=== PATIENT | male | born 1980 | race Caucasian/White ===

== ENCOUNTER 2016-12-03 08:43 | Emergency (ER) | payer SELFPAY ==
[~2016-12-03] VITALS: Ht 182.9 cm; Wt 86.6 kg
[2016-12-03 08:45] VITALS: BP 137/94
[2016-12-03] MEDS ORDERED: FOLIC ACID 1 MG TABLET PO SCH (10:30)
[2016-12-03] MEDS ORDERED: THIAMINE 100MG TABLET PO ONE (10:30)
[2016-12-03 10:39] LABS: ASPARTATE AMINO TRANSFERASE 26 U/L (15-37); BLOOD UREA NITROGEN 14 mg/dL (7-18)
[2016-12-03] MEDS ORDERED: HYDROmorphone 1 MG/ML, 1ML ONE ×2 (10:47→11:21)
[2016-12-03] MEDS ORDERED: ONDANSETRON 2MG/ML, 2ML ONE (10:48)
[2016-12-03] MEDS ORDERED: LORazepam 2 MG/ML, 1ML ONE (10:48)
[2016-12-03] MEDS ORDERED: THIAMINE 100MG TABLET ONE (11:21)
[2016-12-03] MEDS: HYDROmorphone 1 MG/ML, 1ML IVPush PRN ×2 (11:25→11:50)
[2016-12-03] MEDS ORDERED: LORazepam 2 MG/ML, 1ML IVPush ONE (11:30)
[2016-12-03] MEDS ORDERED: SODIUM CHLORIDE FLUSH 10ML SYR IVF ONE (11:30)
[2016-12-03] MEDS ORDERED: ONDANSETRON 2MG/ML, 2ML IVPush ONE (11:30)
[2016-12-03] MEDS ORDERED: SODIUM CHLORIDE 0.9% 1,000ML IVBOLUS ONE (11:30)
[2016-12-03] MEDS ORDERED: OXYcodone/APAP 5/325MG TABLET ONE (12:05)
[2016-12-03] MEDS ORDERED: OXYcodone/APAP 5/325MG TABLET PO ONE (12:30)
== END 2016-12-03 13:03 | disposition home or self-care (01) ==
LOC: ED 12:57
DX: S22.41XA Multiple fractures of ribs, right side, initial encounter for closed fracture (principal); I10 Essential (primary) hypertension; F10.231 Alcohol dependence with withdrawal delirium; Y04.0XXA Assault by unarmed brawl or fight, initial encounter; Y93.89 Activity, other specified; Y99.8 Other external cause status; Y92.009 Unspecified place in unspecified non-institutional (private) residence as the place of occurrence of the external cause
CPT/HCPCS: 36415; 71250; 80053; 80307; 85025; 93005; 96361; 96374; 96375; 99285; J1170; J2060; J2405; J7030

== ENCOUNTER 2016-12-27 11:23 | Inpatient (IN) | payer OTHER ==
[~2016-12-27] VITALS: Ht 182.9 cm; Wt 87.7 kg
[2016-12-27] MEDS ORDERED: THIAMINE 100 MG/ML, 2ML IM ONE (12:00)
[2016-12-27] MEDS ORDERED: SODIUM CHLORIDE FLUSH 10ML SYR IVF ONE (12:00)
[2016-12-27] MEDS ORDERED: ONDANSETRON 2MG/ML, 2ML IVPush ONE (12:00)
[2016-12-27 12:09] LABS: HEMATOCRIT 53.1 % (39.2-51.8); HEMOGLOBIN 18.1 g/dL (13.7-18.0); WHITE BLOOD COUNT 11.9 x10^3/uL (3.4-10)
[2016-12-27 12:12] LABS: ASPARTATE AMINO TRANSFERASE 54 U/L (15-37); BLOOD UREA NITROGEN 15 mg/dL (7-18)
[2016-12-27] MEDS ORDERED: ONDANSETRON 2MG/ML, 2ML ONE (12:15)
[2016-12-27] MEDS ORDERED: THIAMINE 100 MG/ML, 2ML ONE (12:15)
[2016-12-27] MEDS ORDERED: SODIUM CHLORIDE 0.9% 1,000ML IVBOLUS ONE (13:00)
[2016-12-27 13:12] LABS: DAU SCREEN DISCLAIMER
[2016-12-27] MEDS ORDERED: NICOTINE 14MG/24 HR PATCH.TD24 ONE (13:29)
[2016-12-27] MEDS ORDERED: LORazepam 1MG TABLET ONE (13:29)
[2016-12-27] MEDS ORDERED: LORazepam 1MG TABLET PO ONE (13:30)
[2016-12-27] MEDS ORDERED: NICOTINE 7 MG/24 HR PATCH.TD24 TD SCH (13:30)
[2016-12-27] MEDS ORDERED: LORazepam 2 MG/ML, 1ML ONE (16:26)
[2016-12-27] MEDS: LORazepam 2 MG/ML, 1ML IV PRN ×2 (16:30→20:03)
[2016-12-27] MEDS ORDERED: ONDANSETRON 2MG/ML, 2ML IV PRN (16:30)
[2016-12-27] MEDS ORDERED: THIAMINE 200 MG in DEXTROSE 5% 50 ML IVPB ONE (16:30)
[2016-12-27] MEDS ORDERED: DOCUSATE 100 MG CAPSULE PO PRN (16:30)
[2016-12-27 20:00] VITALS: BP 131/81
[2016-12-27] MEDS ORDERED: NICOTINE 14MG/24 HR PATCH.TD24 TD SCH (22:00)
[2016-12-28] MEDS: D5 IV SCH (01:10)
[2016-12-28] MEDS: NACL IV SCH (01:10)
[2016-12-28] MEDS: MVI ADULT IV SCH (01:10)
[2016-12-28] MEDS: POTASSIUM CHLORIDE IV SCH (01:10)
[2016-12-28] MEDS: FOLIC ACID IV SCH (01:10)
[2016-12-28 01:54] LABS: HEMATOCRIT 46.7 % (39.2-51.8); HEMOGLOBIN 15.7 g/dL (13.7-18.0)
[2016-12-28 02:00] VITALS: BP 123/80
[2016-12-28 02:04] LABS: ASPARTATE AMINO TRANSFERASE 40 U/L (15-37); BLOOD UREA NITROGEN 14 mg/dL (7-18)
[2016-12-28] MEDS: LORazepam 2 MG/ML, 1ML IV PRN ×7 (02:32→20:33)
[2016-12-28] MEDS: ENOXAPARIN 40 MG/0.4 ML SQ SCH (05:08)
[2016-12-28 07:40] VITALS: BP 128/85
[2016-12-28] MEDS: MULTIVITAMINS/MINERALS TABLET PO SCH (08:36)
[2016-12-28] MEDS: NICOTINE 14MG/24 HR PATCH.TD24 TD SCH (12:16)
[2016-12-28 13:06] VITALS: BP 127/84
[2016-12-28 20:00] VITALS: BP 118/86
[2016-12-29] MEDS: D5 IV SCH (02:23)
[2016-12-29] MEDS: MVI ADULT IV SCH (02:23)
[2016-12-29] MEDS: POTASSIUM CHLORIDE IV SCH (02:23)
[2016-12-29] MEDS: NACL IV SCH (02:23)
[2016-12-29] MEDS: FOLIC ACID IV SCH (02:23)
[2016-12-29 03:52] VITALS: BP 128/88
[2016-12-29] MEDS: LORazepam 2 MG/ML, 1ML IV PRN ×10 (04:02→21:12)
[2016-12-29 04:47] LABS: HEMATOCRIT 45.2 % (39.2-51.8); HEMOGLOBIN 15.3 g/dL (13.7-18.0); WHITE BLOOD COUNT 7.6 x10^3/uL (3.4-10)
[2016-12-29 04:52] LABS: ASPARTATE AMINO TRANSFERASE 36 U/L (15-37); BLOOD UREA NITROGEN 13 mg/dL (7-18)
[2016-12-29] MEDS: ENOXAPARIN 40 MG/0.4 ML SQ SCH (06:34)
[2016-12-29 07:18] VITALS: BP 127/77
[2016-12-29] MEDS ORDERED: POTASSIUM CHLORIDE 20 MEQ TAB.ER.PRT PO ONE (08:30)
[2016-12-29] MEDS ORDERED: THIAMINE 100MG TABLET PO SCH (09:00)
[2016-12-29] MEDS ORDERED: THIAMINE 100 MG in DEXTROSE 5% 50 ML IVPB SCH (09:00)
[2016-12-29] MEDS: MULTIVITAMINS/MINERALS TABLET PO SCH (09:13)
[2016-12-29] MEDS: D5%-0.45NACL+KCL 20MEQ 1,000 ML IV SCH ×2 (11:27→17:58)
[2016-12-29] MEDS: NICOTINE 14MG/24 HR PATCH.TD24 TD SCH (12:11)
[2016-12-29 12:37] VITALS: BP 123/86
[2016-12-29 20:00] VITALS: BP 133/83
[2016-12-29] MEDS ORDERED: ACETAMINOPHEN 325 MG TABLET PO PRN (20:30)
== END 2016-12-29 22:20 | disposition left against medical advice (07) | DRG 918 ==
LOC: ED 12:56 → EDIP 16:09 → 4WST 18:49
PROVIDERS: ADMIT Internal Medicine; ATTEND Internal Medicine
PROC: HZ2ZZZZ Detoxification Services for Substance Abuse Treatment (ICD-10-PCS; principal; 2016-12-27)
DX: T42.4X1A Poisoning by benzodiazepines, accidental (unintentional), initial encounter (principal); R45.851 Suicidal ideations; E87.2 Acidosis; F10.229 Alcohol dependence with intoxication, unspecified; F17.200 Nicotine dependence, unspecified, uncomplicated; F32.9 Major depressive disorder, single episode, unspecified; I10 Essential (primary) hypertension; Y90.8 Blood alcohol level of 240 mg/100 ml or more; E86.0 Dehydration; D75.89 Other specified diseases of blood and blood-forming organs; D72.829 Elevated white blood cell count, unspecified; F19.10 Other psychoactive substance abuse, uncomplicated; Z53.21 Procedure and treatment not carried out due to patient leaving prior to being seen by health care provider; T40.7X1A Poisoning by cannabis (derivatives), accidental (unintentional), initial encounter; R45.1 Restlessness and agitation; F12.20 Cannabis dependence, uncomplicated
CPT/HCPCS: 31500; 36415; 71010; 80053; 80307; 81003; 82010; 82607; 82746; 83605; 83735; 84100; 85025; 85610; 85730; 87040; 93005; 96361; 96372; 96374; J1650; J2405; J3411; J3480; J7042; J2060; J7030

== ENCOUNTER 2017-01-06 11:49 | Emergency (ER) | payer OTHER ==
[~2017-01-06] VITALS: Ht 185.4 cm; Wt 90.0 kg
[2017-01-06] MEDS ORDERED: LORazepam 2 MG/ML, 1ML ONE (12:21)
[2017-01-06] MEDS ORDERED: MORPHINE SULFATE 4 MG/ML, 1ML ONE ×2 (12:22→15:14)
[2017-01-06] MEDS: MORPHINE SULFATE 4 MG/ML, 1ML IVPush PRN ×2 (12:25→15:16)
[2017-01-06] MEDS: LORazepam 2 MG/ML, 1ML IVPush PRN ×2 (12:26→12:47)
[2017-01-06 12:30] LABS: HEMOGLOBIN 17.9 g/dL (13.7-18.0); WHITE BLOOD COUNT 20.6 x10^3/uL (3.4-10)
[2017-01-06] MEDS ORDERED: SODIUM CHLORIDE 0.9% 1,000ML IVBOLUS ONE (12:30)
[2017-01-06] MEDS ORDERED: SODIUM CHLORIDE FLUSH 10ML SYR IVF ONE (12:30)
[2017-01-06 12:42] LABS: BLOOD UREA NITROGEN 14 mg/dL (7-18)
[2017-01-06 12:45] LABS: ASPARTATE AMINO TRANSFERASE 139 U/L (15-37)
[2017-01-06 12:50] LABS: DIFF TOTAL CELLS COUNTED 100 CELL DIFF
[2017-01-06 12:51] LABS: VERIFY COUNTS? YES
[2017-01-06] MEDS ORDERED: ONDANSETRON 2MG/ML, 2ML IVPush ONE (14:30)
[2017-01-06] MEDS ORDERED: MORPHINE SULFATE 4 MG/ML, 1ML IVPush PRN (14:30)
[2017-01-06 16:51] VITALS: BP 136/78
== END 2017-01-06 16:54 | disposition home or self-care (01) ==
LOC: ED 12:57
DX: S22.050A Wedge compression fracture of T5-T6 vertebra, initial encounter for closed fracture (principal); G89.11 Acute pain due to trauma; R56.9 Unspecified convulsions; F10.239 Alcohol dependence with withdrawal, unspecified; I10 Essential (primary) hypertension; W01.0XXA Fall on same level from slipping, tripping and stumbling without subsequent striking against object, initial encounter; Y93.01 Activity, walking, marching and hiking; Y92.89 Other specified places as the place of occurrence of the external cause; Y99.8 Other external cause status
CPT/HCPCS: 36415; 72072; 80053; 80307; 85025; 96361; 96374; 96375; 96376; 99285; J2060; J7030

== ENCOUNTER 2017-04-29 17:14 | Observation (INO) | payer MEDICAID, OTHER ==
[~2017-04-29] VITALS: Ht 182.9 cm; Wt 84.0 kg
[2017-04-29] MEDS ORDERED: SODIUM CHLORIDE FLUSH 10ML SYR IVF ONE (18:30)
[2017-04-29] MEDS ORDERED: ONDANSETRON 2MG/ML, 2ML IVPush ONE (18:30)
[2017-04-29] MEDS ORDERED: MORPHINE SULFATE 4 MG/ML, 1ML IVPush PRN (18:30)
[2017-04-29] MEDS ORDERED: SODIUM CHLORIDE 0.9% 1,000ML IVBOLUS ONE (18:30)
[2017-04-29] MEDS ORDERED: morphine SULFATE 10 MG/ML, 1ML ONE (18:31)
[2017-04-29] MEDS ORDERED: ONDANSETRON 2MG/ML, 2ML ONE (18:31)
[2017-04-29 18:45] LABS: HEMATOCRIT 51.3 % (39.2-51.8); HEMOGLOBIN 17.5 g/dL (13.7-18.0); WHITE BLOOD COUNT 22.7 x10^3/uL (3.4-10)
[2017-04-29 18:57] LABS: BLOOD UREA NITROGEN 15 mg/dL (7-18)
[2017-04-29 19:12] LABS: DIFF TOTAL CELLS COUNTED 200 CELL DIFF
[2017-04-29 19:15] LABS: VERIFY COUNTS? YES
[2017-04-29] MEDS ORDERED: ETOMIDATE 20 MG/10 ML ONE (19:35)
[2017-04-29] MEDS ORDERED: FENTANYL PF 100 MCG/2ML ONE ×2 (19:39→21:18)
[2017-04-29] MEDS ORDERED: ETOMIDATE 40 MG/20 ML IVPush ONE (20:00)
[2017-04-29] MEDS ORDERED: FENTANYL PF 100 MCG/2ML IVPush ONE (20:00)
[2017-04-29] MEDS ORDERED: HYDROmorphone 1 MG/ML, 1ML ONE ×2 (20:09→20:24)
[2017-04-29] MEDS: HYDROmorphone 1 MG/ML, 1ML IVPush PRN ×2 (20:13→20:34)
[2017-04-29] MEDS ORDERED: hydrALAzine 20 MG/ML, 1ML IV PRN (21:30)
[2017-04-29] MEDS ORDERED: HYDROmorphone 1 MG/ML, 1ML IV PRN (21:30)
[2017-04-29] MEDS ORDERED: OXYcodone 5 MG/5 ML ORAL.SOL UDC PO PRN (21:30)
[2017-04-29] MEDS ORDERED: LORazepam 2 MG/ML, 1ML IVPush PRN (21:30)
[2017-04-29] MEDS ORDERED: METOPROLOL 1 MG/ML, 5ML IV PRN (21:30)
[2017-04-29] MEDS ORDERED: EPHEDRINE 50 MG/ML, 1ML IVPush PRN ×2 (21:30→22:00)
[2017-04-29] MEDS ORDERED: LABETALOL 5MG/ML, 20ML IV PRN (21:30)
[2017-04-29] MEDS ORDERED: ACETAMINOPHEN 325 MG TABLET PO PRN (21:30)
[2017-04-29] MEDS ORDERED: ALBUTEROL SULFATE 2.5 MG/3 ML NPPB PRN (21:30)
[2017-04-29] MEDS ORDERED: ONDANSETRON 2MG/ML, 2ML IVPush PRN (21:30)
[2017-04-29] MEDS ORDERED: PROPOFOL 10 MG/ML, 20ML ONE (22:08)
[2017-04-29] MEDS ORDERED: CEFAZOLIN 1,000 MG ONE ×2 (22:08)
[2017-04-29] MEDS ORDERED: ROCURONIUM 10 MG/ML,10ML ONE (22:08)
[2017-04-29] MEDS ORDERED: DEXAMETHASONE 4 MG/ML, 1ML ONE (22:10)
[2017-04-30] MEDS ORDERED: MEPERIDINE/PF 25MG/0.5ML ONE (00:15)
[2017-04-30] MEDS ORDERED: ACETAMINOPHEN 650 MG/20.3 ML UDC ONE (00:15)
[2017-04-30] MEDS ORDERED: OXYcodone 5 MG/5 ML ORAL.SOL UDC ONE (00:15)
[2017-04-30] MEDS ORDERED: FENTANYL PF 100 MCG/2ML ONE (00:15)
[2017-04-30] MEDS: FENTANYL PF 100 MCG/2ML IV PRN ×2 (00:25→00:31)
[2017-04-30] MEDS ORDERED: LORazepam 2 MG/ML, 1ML IVPush PRN (00:30)
[2017-04-30] MEDS ORDERED: ALBUTEROL SULFATE 2.5 MG/3 ML NPPB PRN (00:30)
[2017-04-30] MEDS ORDERED: OXYcodone 5 MG/5 ML ORAL.SOL UDC PO PRN (00:30)
[2017-04-30] MEDS ORDERED: MAGNESIUM HYDROXIDE 8%, 30ML UDC PO PRN (00:30)
[2017-04-30] MEDS ORDERED: HYDROcodone/APAP 5/325 TABLET PO PRN (00:30)
[2017-04-30] MEDS ORDERED: ONDANSETRON 2MG/ML, 2ML IVPush PRN (00:30)
[2017-04-30] MEDS ORDERED: PROMETHAZINE 25 MG/ML, 1ML IM PRN (00:30)
[2017-04-30] MEDS ORDERED: PROMETHAZINE 25 MG/ML, 1ML IV PRN (00:30)
[2017-04-30] MEDS ORDERED: BISACODYL 10 MG SUPP PR PRN (00:30)
[2017-04-30] MEDS ORDERED: hydrALAzine 20 MG/ML, 1ML IV PRN (00:30)
[2017-04-30] MEDS ORDERED: DIPHENHYDRAMINE 50 MG CAPSULE PO PRN (00:30)
[2017-04-30] MEDS ORDERED: FENTANYL PF 100 MCG/2ML IV PRN (00:30)
[2017-04-30] MEDS ORDERED: SENNA/DOCUSATE TABLET PO PRN (00:30)
[2017-04-30] MEDS ORDERED: METOPROLOL 1 MG/ML, 5ML IV PRN (00:30)
[2017-04-30] MEDS ORDERED: HYDROmorphone 1 MG/ML, 1ML IV PRN (00:30)
[2017-04-30] MEDS ORDERED: MEPERIDINE/PF 25MG/0.5ML IVPush PRN (00:30)
[2017-04-30] MEDS ORDERED: ACETAMINOPHEN 325 MG TABLET PO PRN (00:30)
[2017-04-30] MEDS ORDERED: LORazepam 2 MG/ML, 1ML ONE (00:33)
[2017-04-30] MEDS ORDERED: LORazepam 2 MG/ML, 1ML IV PRN (01:00)
[2017-04-30] MEDS ORDERED: DIAZEPAM 5 MG/ML, 2ML IV ONE (01:00)
[2017-04-30] MEDS ORDERED: FOLIC ACID 5 MG/ML IM ONE (01:00)
[2017-04-30] MEDS: morphine SULFATE 10 MG/ML, 1ML IVPush PRN ×2 (01:44→04:55)
[2017-04-30 03:21] VITALS: BP 128/83
[2017-04-30] MEDS: OXYcodone/APAP 5/325MG TABLET PO PRN ×3 (04:54→13:44)
[2017-04-30 06:44] VITALS: BP 119/70
[2017-04-30] MEDS ORDERED: FOLIC ACID 1 MG TABLET PO ONE (07:00)
[2017-04-30] MEDS: CEFAZOLIN PMX 2GM/50ML 50 ML IVPB SCH ×2 (07:32→14:00)
[2017-04-30 12:12] VITALS: BP 148/82
[2017-04-30] MEDS ORDERED: OXYC5CAP2 PO (12:48)
[2017-04-30] MEDS ORDERED: FLU VACC QS2017-18 (36MOS+) UP/PF 0.5 ML IM-VACC ONE (13:00)
== END 2017-04-30 15:05 | disposition home or self-care (01) ==
LOC: ED 18:15 → EDIP 04-30 00:10 → 4NOR 04-30 01:03 → DCLOUNGE 04-30 14:47
PROVIDERS: ADMIT Orthopaedic Surgery; ATTEND Orthopaedic Surgery
DX: S42.251A Displaced fracture of greater tuberosity of right humerus, initial encounter for closed fracture (principal); S43.014A Anterior dislocation of right humerus, initial encounter; S43.034A Inferior dislocation of right humerus, initial encounter; I10 Essential (primary) hypertension; G40.89 Other seizures
CPT/HCPCS: 23670; 36415; 70450; 73020; 73030; 76001; 80048; 82040; 85025; 85610; 85730; 90471; 90686; 93005; 96365; 96375; 96376; 97162; 97166; 99285; C1713; G0378; G8978; G8979; G8980; J0690; J1100; J1170; J2060; J2270; J2405; J2704; J3010; J7030

== ENCOUNTER 2017-06-06 10:30 | Emergency (ER) | payer MEDICAID ==
[~2017-06-06] VITALS: Ht 182.9 cm; Wt 84.1 kg
[~2017-06-06 10:30] MED LIST: OXYC5CAP2 PO
[2017-06-06] MEDS ORDERED: ONDANSETRON 2MG/ML, 2ML ONE (11:23)
[2017-06-06] MEDS ORDERED: LORazepam 2 MG/ML, 1ML ONE (11:23)
[2017-06-06] MEDS ORDERED: PANTOPRAZOLE 40 MG IV ONE (11:23)
[2017-06-06] MEDS ORDERED: SODIUM CHLORIDE FLUSH 10ML SYR IVF ONE (11:30)
[2017-06-06] MEDS ORDERED: PANTOPRAZOLE 40 MG IV IVPush ONE (11:30)
[2017-06-06] MEDS ORDERED: ONDANSETRON 2MG/ML, 2ML IVPush ONE (11:30)
[2017-06-06] MEDS ORDERED: MAGNESIUM SULFATE 2 GM, THIAMINE 100 MG, FOLIC ACID 1 MG, MVI ADULT 10 ML in SODIUM CHL... IV ONE (11:30)
[2017-06-06] MEDS ORDERED: SODIUM CHLORIDE 0.9% 1,000ML IVBOLUS ONE (11:30)
[2017-06-06] MEDS ORDERED: LORazepam 2 MG/ML, 1ML IVPush PRN (11:30)
[2017-06-06 11:34] LABS: INTERNATIONAL NORMALIZED RATIO 0.99 (0.93-1.1); PROTHROMBIN TIME 10.3 Seconds (9.6-11.5)
[2017-06-06 11:38] LABS: ALANINE AMINOTRANSFERASE 31 U/L (12-78); ALBUMIN 4.3 g/dL (3.4-5.0); ANION GAP 15 mmol/L (5-15); CALCIUM 8.9 mg/dL (8.5-10.1); CHLORIDE 97 mmol/L (98-107); CREATININE 1.03 mg/dL (0.7-1.3)
[2017-06-06 11:41] LABS: ALKALINE PHOSPHATASE 72 U/L (45-117); BILIRUBIN,TOTAL 1.6 mg/dL (0.2-1.0); TOTAL PROTEIN 7.9 g/dL (6.4-8.2)
[2017-06-06 11:54] LABS: BASOPHILS # (AUTO) 0.03 x10^3/uL (0-0.1); BASOPHILS % (AUTO) 0 % (0-1); EOSINOPHILS # (AUTO) 0.04 x10^3/uL (0-0.4); EOSINOPHILS % (AUTO) 0 % (1-7); LYMPHOCYTES # (AUTO) 2.14 x10^3/uL (1-3.4); LYMPHOCYTES % (AUTO) 15 % (22-44); MD NO; MEAN CORPUSCULAR HEMOGLOBIN 34.2 pg (27.5-34.5); MEAN CORPUSCULAR HGB CONC 34.5 g/dL (33.2-36.2); MEAN CORPUSCULAR VOLUME 99.2 fL (81-97); MEAN PLATELET VOLUME 7.8 fL (7.4-10.4); MONOCYTES # (AUTO) 0.99 x10^3/uL (0.2-0.8); MONOCYTES % (AUTO) 7 % (2-9); NEUTROPHILS # (AUTO) 11.03 x10^3/uL (1.8-6.8); NEUTROPHILS % (AUTO) 78 % (42-75); PLATELET COUNT 261 x10^3/uL (130-400); RED BLOOD COUNT 5.32 x10^6/uL (4.38-5.82); RED CELL DISTRIBUTION WIDTH 13.2 % (9.4-14.8)
[2017-06-06 11:58] LABS: ACETONE, SERUM Negative (Negative)
[2017-06-06] MEDS ORDERED: KETOROLAC 30 MG/1 ML ONE (12:17)
[2017-06-06] MEDS ORDERED: KETOROLAC 30 MG/1 ML IVPush ONE (12:30)
[2017-06-06 14:05] VITALS: BP 118/74
== END 2017-06-06 14:08 | disposition home or self-care (01) ==
LOC: ED 13:04
DX: F10.239 Alcohol dependence with withdrawal, unspecified (principal); F17.200 Nicotine dependence, unspecified, uncomplicated; F32.9 Major depressive disorder, single episode, unspecified; I10 Essential (primary) hypertension; F19.10 Other psychoactive substance abuse, uncomplicated
CPT/HCPCS: 36415; 80053; 80307; 82010; 83690; 83735; 85025; 85610; 96365; 96366; 96375; 99285; C9113; J1885; J2060; J2405; J3411; J3475; J7030; G0479

== ENCOUNTER 2017-06-14 13:56 | Emergency (ER) | payer MEDICAID ==
[~2017-06-14] VITALS: Ht 182.9 cm; Wt 85.0 kg
[2017-06-14 13:58] VITALS: BP 132/88
[2017-06-14 14:48] LABS: BASOPHILS % (AUTO) 1 % (0-1); EOSINOPHILS % (AUTO) 1 % (1-7); LYMPHOCYTES # (AUTO) 4.55 x10^3/uL (1-3.4); LYMPHOCYTES % (AUTO) 37 % (22-44); MD NO; MEAN CORPUSCULAR HEMOGLOBIN 33.8 pg (27.5-34.5); MEAN CORPUSCULAR HGB CONC 33.7 g/dL (33.2-36.2); MEAN CORPUSCULAR VOLUME 100.2 fL (81-97); MEAN PLATELET VOLUME 7.3 fL (7.4-10.4); MONOCYTES # (AUTO) 0.38 x10^3/uL (0.2-0.8); MONOCYTES % (AUTO) 3 % (2-9); NEUTROPHILS % (AUTO) 58 % (42-75); PLATELET COUNT 330 x10^3/uL (130-400); RED BLOOD COUNT 5.37 x10^6/uL (4.38-5.82); RED CELL DISTRIBUTION WIDTH 14.1 % (9.4-14.8)
[2017-06-14 14:59] LABS: ALBUMIN 4.2 g/dL (3.4-5.0); ANION GAP 7 mmol/L (5-15); CALCIUM 8.6 mg/dL (8.5-10.1); CHLORIDE 109 mmol/L (98-107)
[2017-06-14] MEDS ORDERED: KETOROLAC 30 MG/1 ML IM ONE (15:00)
[2017-06-14] MEDS ORDERED: GABAPENTIN 300 MG CAPSULE PO ONE (15:00)
[2017-06-14 15:03] LABS: ALANINE AMINOTRANSFERASE 70 U/L (12-78); ALKALINE PHOSPHATASE 66 U/L (45-117); BILIRUBIN,TOTAL 0.2 mg/dL (0.2-1.0); CREATININE 1.01 mg/dL (0.7-1.3); SALICYLATE LEVEL 3.6 mg/dL (2.8-20.0); TOTAL PROTEIN 7.7 g/dL (6.4-8.2)
[2017-06-14 15:04] LABS: ACETAMINOPHEN < 2 mcg/mL (10-30)
[2017-06-14] MEDS ORDERED: KETOROLAC 30 MG/1 ML ONE (15:20)
[2017-06-14] MEDS ORDERED: ZIPRASIDONE 20 MG INJ IM ONE ×2 (15:36→16:00)
[2017-06-14 15:49] LABS: AMPHETAMINE SCREEN, URINE Negative (Negative); BARBITURATE SCREEN, URINE Negative (Negative); BENZODIAZEPINE SCREEN, URINE Positive (Negative); CANNABINOID SCREEN, URINE Positive (Negative); METHADONE SCREEN, URINE Negative (Negative); OPIATE SCREEN, URINE Negative (Negative)
[2017-06-14 15:50] LABS: COCAINE SCREEN, URINE Negative (Negative)
== END 2017-06-14 19:51 | disposition home or self-care (01) ==
LOC: ED 16:10
DX: G93.49 Other encephalopathy (principal); F10.129 Alcohol abuse with intoxication, unspecified; I10 Essential (primary) hypertension; F32.9 Major depressive disorder, single episode, unspecified
CPT/HCPCS: 36415; 80053; 80307; 80329; 85025; 96372; 96374; 99284; J1885; J3486; G0480

== ENCOUNTER 2017-08-15 11:20 | Emergency (ER) | payer MEDICAID ==
[~2017-08-15] VITALS: Ht 182.9 cm; Wt 91.0 kg
[~2017-08-15 11:20] MED LIST changes: +BUSP5TAB2 PO; +DIVA125T2 PO; +FOLI-17 PO; +GABA-827 PO; +IBUP-1484 PO; +OMEP-110 PO; +SERT25TA PO; +THIA100T6 PO
[2017-08-15] MEDS ORDERED: SODIUM CHLORIDE 0.9% 1,000 ML IV ONE (11:29)
[2017-08-15] MEDS ORDERED: THIAMINE 100MG TABLET PO ONE (11:30)
[2017-08-15] MEDS ORDERED: ONDANSETRON 2MG/ML, 2ML IVPush ONE (11:30)
[2017-08-15] MEDS ORDERED: LORazepam 2 MG/ML, 1ML IVPush PRN (11:30)
[2017-08-15] MEDS ORDERED: SODIUM CHLORIDE FLUSH 10ML SYR IVF ONE (11:30)
[2017-08-15] MEDS ORDERED: SODIUM CHLORIDE 0.9% 1,000ML IVBOLUS ONE (11:30)
[2017-08-15 11:46] LABS: BASOPHILS # (AUTO) 0.03 x10^3/uL (0-0.1); BASOPHILS % (AUTO) 0 % (0-1); EOSINOPHILS # (AUTO) 0.04 x10^3/uL (0-0.4); EOSINOPHILS % (AUTO) 0 % (1-7); LYMPHOCYTES # (AUTO) 1.17 x10^3/uL (1-3.4); LYMPHOCYTES % (AUTO) 13 % (22-44); MD NO; MEAN CORPUSCULAR HEMOGLOBIN 34.6 pg (27.5-34.5); MEAN CORPUSCULAR HGB CONC 35.2 g/dL (33.2-36.2); MEAN CORPUSCULAR VOLUME 98.1 fL (81-97); MEAN PLATELET VOLUME 7.1 fL (7.4-10.4); MONOCYTES # (AUTO) 0.84 x10^3/uL (0.2-0.8); MONOCYTES % (AUTO) 9 % (2-9); NEUTROPHILS # (AUTO) 6.83 x10^3/uL (1.8-6.8); NEUTROPHILS % (AUTO) 77 % (42-75); PLATELET COUNT 200 x10^3/uL (130-400); RED BLOOD COUNT 4.61 x10^6/uL (4.38-5.82); RED CELL DISTRIBUTION WIDTH 14.5 % (9.4-14.8)
[2017-08-15] MEDS ORDERED: ONDANSETRON 2MG/ML, 2ML ONE (11:49)
[2017-08-15] MEDS ORDERED: LORazepam 2 MG/ML, 1ML ONE (11:49)
[2017-08-15] MEDS ORDERED: THIAMINE 100MG TABLET ONE (11:49)
[2017-08-15 11:57] LABS: INTERNATIONAL NORMALIZED RATIO 0.99 (0.93-1.1); PROTHROMBIN TIME 10.3 Seconds (9.6-11.5)
[2017-08-15 11:58] LABS: ALANINE AMINOTRANSFERASE 31 U/L (12-78); ALBUMIN 3.5 g/dL (3.4-5.0); ANION GAP 13 mmol/L (5-15); CHLORIDE 102 mmol/L (98-107); CREATININE 0.82 mg/dL (0.7-1.3)
[2017-08-15 12:00] LABS: ALKALINE PHOSPHATASE 69 U/L (45-117); BILIRUBIN,TOTAL 1.8 mg/dL (0.2-1.0); TOTAL PROTEIN 6.7 g/dL (6.4-8.2)
[2017-08-15 12:51] LABS: CULTURE INDICATED? NO; MICROSCOPIC AUTO
[2017-08-15 15:40] VITALS: BP 107/63
== END 2017-08-15 16:25 | disposition home or self-care (01) ==
LOC: ED 11:59
DX: F10.232 Alcohol dependence with withdrawal with perceptual disturbance (principal); I10 Essential (primary) hypertension; F32.9 Major depressive disorder, single episode, unspecified; F41.9 Anxiety disorder, unspecified; Z86.73 Personal history of transient ischemic attack (TIA), and cerebral infarction without residual deficits
CPT/HCPCS: 36415; 80053; 81001; 83605; 83690; 85025; 85610; 93005; 96361; 96374; 96375; 99285; J2060; J2405; J7030

== ENCOUNTER 2017-08-17 14:57 | Observation (INO) | payer MEDICAID ==
[~2017-08-17] VITALS: Ht 182.9 cm; Wt 85.0 kg
[2017-08-17 15:20] LABS: BASOPHILS # (AUTO) 0.03 x10^3/uL (0-0.1); BASOPHILS % (AUTO) 0 % (0-1); EOSINOPHILS # (AUTO) 0.01 x10^3/uL (0-0.4); EOSINOPHILS % (AUTO) 0 % (1-7); LYMPHOCYTES # (AUTO) 1.66 x10^3/uL (1-3.4); LYMPHOCYTES % (AUTO) 22 % (22-44); MD NO; MEAN CORPUSCULAR HEMOGLOBIN 33.6 pg (27.5-34.5); MEAN CORPUSCULAR HGB CONC 34.3 g/dL (33.2-36.2); MEAN PLATELET VOLUME 7.1 fL (7.4-10.4); MONOCYTES # (AUTO) 0.22 x10^3/uL (0.2-0.8); MONOCYTES % (AUTO) 3 % (2-9); NEUTROPHILS # (AUTO) 5.61 x10^3/uL (1.8-6.8); NEUTROPHILS % (AUTO) 75 % (42-75); PLATELET COUNT 231 x10^3/uL (130-400); RED BLOOD COUNT 5.04 x10^6/uL (4.38-5.82); RED CELL DISTRIBUTION WIDTH 14.3 % (9.4-14.8)
[2017-08-17 15:34] LABS: ALANINE AMINOTRANSFERASE 42 U/L (12-78); ALBUMIN 3.8 g/dL (3.4-5.0); ANION GAP 19 mmol/L (5-15); CALCIUM 8.1 mg/dL (8.5-10.1); CHLORIDE 100 mmol/L (98-107); CREATININE 0.73 mg/dL (0.7-1.3); SALICYLATE LEVEL 3.8 mg/dL (2.8-20.0)
[2017-08-17 15:36] LABS: ACETAMINOPHEN < 2 mcg/mL (10-30); ALKALINE PHOSPHATASE 70 U/L (45-117); BILIRUBIN,TOTAL 0.5 mg/dL (0.2-1.0); TOTAL PROTEIN 7.1 g/dL (6.4-8.2)
[2017-08-17] MEDS ORDERED: SODIUM CHLORIDE 0.9% 1,000ML IVBOLUS ONE (16:00)
[2017-08-17 16:47] LABS: AMPHETAMINE SCREEN, URINE Negative (Negative); BARBITURATE SCREEN, URINE Negative (Negative); BENZODIAZEPINE SCREEN, URINE Negative (Negative); CANNABINOID SCREEN, URINE Positive (Negative); COCAINE SCREEN, URINE Negative (Negative); METHADONE SCREEN, URINE Negative (Negative); OPIATE SCREEN, URINE Negative (Negative)
[2017-08-17] MEDS ORDERED: LORazepam 1MG TABLET ONE ×2 (19:28→21:32)
[2017-08-17] MEDS ORDERED: LORazepam 1MG TABLET PO ONE ×2 (19:30→21:30)
[2017-08-17] MEDS ORDERED: ZIPRASIDONE 20 MG INJ IM ONE (22:07)
[2017-08-18] MEDS ORDERED: DOCUSATE 100 MG CAPSULE PO PRN (04:30)
[2017-08-18] MEDS: DIVALPROEX 250 MG TABLET.DR PO SCH ×2 (04:30→11:53)
[2017-08-18] MEDS: BUSPIRONE 5 MG TABLET PO SCH ×2 (04:30→10:51)
[2017-08-18] MEDS ORDERED: NICOTINE 7 MG/24 HR PATCH.TD24 TD SCH (04:30)
[2017-08-18] MEDS ORDERED: ONDANSETRON ODT 4 MG PO PRN (04:30)
[2017-08-18] MEDS ORDERED: LORazepam 2 MG/ML, 1ML IM PRN (04:30)
[2017-08-18 05:26] LABS: FOLATE LEVEL 8.2 ng/mL (3.1-17.5); THYROID STIMULATING HORMONE 2.35 mIU/L (0.358-3.740)
[2017-08-18] MEDS ORDERED: NICOTINE 7 MG/24 HR PATCH.TD24 ONE (05:36)
[2017-08-18] MEDS ORDERED: LORazepam 2 MG/ML, 1ML ONE (05:53)
[2017-08-18] MEDS ORDERED: HYDROcodone/APAP 5/325 TABLET ONE (08:38)
[2017-08-18] MEDS ORDERED: LORazepam 1MG TABLET ONE ×2 (08:38→10:54)
[2017-08-18] MEDS: LORazepam 1MG TABLET PO PRN ×2 (08:39→10:56)
[2017-08-18 08:43] VITALS: BP 138/89
[2017-08-18] MEDS ORDERED: OMEPRAZOLE 20 MG CAPSULE.DR PO SCH (09:00)
[2017-08-18] MEDS ORDERED: GABAPENTIN 400 MG CAPSULE PO SCH (09:00)
[2017-08-18] MEDS ORDERED: HYDROcodone/APAP 5/325 TABLET PO PRN (09:00)
[2017-08-18] MEDS ORDERED: SERTRALINE 100MG TABLET PO SCH (09:00)
[2017-08-18] MEDS ORDERED: MULTIVITAMIN 1 TABLET PO SCH (09:00)
[2017-08-18] MEDS ORDERED: GABAPENTIN 400 MG CAPSULE ONE (10:54)
[2017-08-18] MEDS ORDERED: MAALOX/HYOSCYAMINE/LIDOCAINE 45 ML BTL ONE (11:20)
[2017-08-18] MEDS ORDERED: MAALOX/HYOSCYAMINE/LIDOCAINE 45 ML BTL PO ONE (11:30)
== END 2017-08-18 11:54 ==
LOC: ED 16:18 → EDIP 08-18 01:45
PROVIDERS: ADMIT Internal Medicine; ATTEND Internal Medicine
DX: T50.902A Poisoning by unspecified drugs, medicaments and biological substances, intentional self-harm, initial encounter (principal); F41.1 Generalized anxiety disorder; I10 Essential (primary) hypertension; F12.90 Cannabis use, unspecified, uncomplicated; F10.229 Alcohol dependence with intoxication, unspecified; D75.89 Other specified diseases of blood and blood-forming organs; E87.2 Acidosis; Z87.891 Personal history of nicotine dependence; Z91.5 Personal history of self-harm; Y92.89 Other specified places as the place of occurrence of the external cause
CPT/HCPCS: 36415; 80053; 80307; 80329; 82306; 82607; 82746; 84443; 85025; 93005; 96360; 96372; 99285; G0378; J2060; J7030; G0480

== ENCOUNTER 2017-08-31 16:18 | Emergency (ER) | payer MEDICAID ==
[~2017-08-31] VITALS: Ht 182.9 cm; Wt 85.0 kg
[2017-08-31] MEDS ORDERED: SODIUM CHLORIDE FLUSH 10ML SYR IVF ONE (16:30)
[2017-08-31] MEDS ORDERED: PROPOFOL 10 MG/ML, 20ML ONE ×2 (16:59→17:22)
[2017-08-31] MEDS ORDERED: DIVA125T2 PO (17:15)
[2017-08-31] MEDS ORDERED: GABA300C PO (17:15)
[2017-08-31 17:16] LABS: BASOPHILS # (AUTO) 0.03 x10^3/uL (0-0.1); BASOPHILS % (AUTO) 0 % (0-1); EOSINOPHILS # (AUTO) 0.02 x10^3/uL (0-0.4); EOSINOPHILS % (AUTO) 0 % (1-7); LYMPHOCYTES # (AUTO) 1.43 x10^3/uL (1-3.4); LYMPHOCYTES % (AUTO) 12 % (22-44); MD NO; MEAN CORPUSCULAR HEMOGLOBIN 33.7 pg (27.5-34.5); MEAN CORPUSCULAR VOLUME 98.9 fL (81-97); MEAN PLATELET VOLUME 7.6 fL (7.4-10.4); MONOCYTES # (AUTO) 0.73 x10^3/uL (0.2-0.8); MONOCYTES % (AUTO) 6 % (2-9); NEUTROPHILS # (AUTO) 9.77 x10^3/uL (1.8-6.8); NEUTROPHILS % (AUTO) 82 % (42-75); PLATELET COUNT 313 x10^3/uL (130-400); RED BLOOD COUNT 4.45 x10^6/uL (4.38-5.82); RED CELL DISTRIBUTION WIDTH 14.6 % (9.4-14.8)
[2017-08-31 17:26] LABS: ANION GAP 11 mmol/L (5-15); CALCIUM 8.2 mg/dL (8.5-10.1); CHLORIDE 108 mmol/L (98-107); CREATININE 1.15 mg/dL (0.7-1.3)
[2017-08-31] MEDS ORDERED: PROPOFOL 10 MG/ML, 20ML IVPush ONE (17:30)
[2017-08-31] MEDS ORDERED: KETOROLAC 30 MG/1 ML ONE (17:57)
[2017-08-31] MEDS ORDERED: DIVALPROEX 500 MG TABLET.DR PO ONE (18:00)
[2017-08-31] MEDS ORDERED: KETOROLAC 30 MG/1 ML IM ONE (18:00)
[2017-08-31 18:13] VITALS: BP 131/85
== END 2017-08-31 18:38 | disposition home or self-care (01) ==
LOC: ED 18:31
DX: G40.419 Other generalized epilepsy and epileptic syndromes, intractable, without status epilepticus (principal); S43.005A Unspecified dislocation of left shoulder joint, initial encounter; X58.XXXA Exposure to other specified factors, initial encounter; Y93.89 Activity, other specified; Y92.89 Other specified places as the place of occurrence of the external cause; Y99.9 Unspecified external cause status
CPT/HCPCS: 23650; 36415; 73030; 80048; 80164; 82040; 85025; 93005; 96372; 99152; 99285; J1885; J2704

== ENCOUNTER 2017-09-03 14:47 | Emergency (ER) | payer MEDICAID ==
[~2017-09-03] VITALS: Ht 182.9 cm; Wt 85.0 kg
[~2017-09-03 14:47] MED LIST changes: +GABA300C PO
[2017-09-03 14:52] VITALS: BP 121/86
[2017-09-03] MEDS ORDERED: LORazepam 1MG TABLET PO ONE (15:30)
[2017-09-03 15:46] LABS: BASOPHILS # (AUTO) 0.04 x10^3/uL (0-0.1); BASOPHILS % (AUTO) 0 % (0-1); EOSINOPHILS # (AUTO) 0.01 x10^3/uL (0-0.4); EOSINOPHILS % (AUTO) 0 % (1-7); LYMPHOCYTES # (AUTO) 2.64 x10^3/uL (1-3.4); LYMPHOCYTES % (AUTO) 26 % (22-44); MD NO; MEAN CORPUSCULAR HEMOGLOBIN 33.8 pg (27.5-34.5); MEAN CORPUSCULAR VOLUME 99.5 fL (81-97); MEAN PLATELET VOLUME 7.4 fL (7.4-10.4); MONOCYTES # (AUTO) 0.58 x10^3/uL (0.2-0.8); MONOCYTES % (AUTO) 6 % (2-9); NEUTROPHILS # (AUTO) 7.04 x10^3/uL (1.8-6.8); NEUTROPHILS % (AUTO) 68 % (42-75); PLATELET COUNT 337 x10^3/uL (130-400); RED BLOOD COUNT 4.89 x10^6/uL (4.38-5.82); RED CELL DISTRIBUTION WIDTH 14.3 % (9.4-14.8)
[2017-09-03] MEDS ORDERED: LORazepam 1MG TABLET ONE (15:50)
[2017-09-03 15:56] LABS: ANION GAP 14 mmol/L (5-15); CALCIUM 9.1 mg/dL (8.5-10.1); CHLORIDE 107 mmol/L (98-107); CREATININE 0.88 mg/dL (0.7-1.3)
== END 2017-09-03 17:50 ==
LOC: ED 17:14
DX: F10.239 Alcohol dependence with withdrawal, unspecified (principal); F41.1 Generalized anxiety disorder; F13.239 Sedative, hypnotic or anxiolytic dependence with withdrawal, unspecified; F17.200 Nicotine dependence, unspecified, uncomplicated; Z79.899 Other long term (current) drug therapy
CPT/HCPCS: 36415; 80048; 80307; 85025; 93005; 99285

== ENCOUNTER 2018-01-09 15:42 | Observation (INO) | payer MEDICAID ==
[~2018-01-09] VITALS: Ht 182.9 cm; Wt 91.3 kg
[~2018-01-09 15:42] MED LIST changes: -THIA100T6 PO; +THIA100T67 PO
[2018-01-09] MEDS ORDERED: HYDR-3240 PO (15:51)
[2018-01-09] MEDS ORDERED: LAMO25TA5 PO (15:51)
[2018-01-09] MEDS ORDERED: LORazepam 1MG TABLET ONE ×2 (16:12→21:44)
[2018-01-09] MEDS ORDERED: LORazepam 1MG TABLET PO ONE ×2 (16:30→22:00)
[2018-01-09 22:22] LABS: AMPHETAMINE SCREEN, URINE Negative (Negative); BARBITURATE SCREEN, URINE Negative (Negative); BENZODIAZEPINE SCREEN, URINE Negative (Negative); CANNABINOID SCREEN, URINE Positive (Negative); COCAINE SCREEN, URINE Negative (Negative); METHADONE SCREEN, URINE Negative (Negative); OPIATE SCREEN, URINE Negative (Negative)
[2018-01-09 22:22] LABS: BASOPHILS # (AUTO) 0.02 x10^3/uL (0-0.1); BASOPHILS % (AUTO) 0 % (0-1); EOSINOPHILS # (AUTO) 0.05 x10^3/uL (0-0.4); EOSINOPHILS % (AUTO) 1 % (1-7); LYMPHOCYTES # (AUTO) 2.27 x10^3/uL (1-3.4); LYMPHOCYTES % (AUTO) 34 % (22-44); MD NO; MEAN CORPUSCULAR HEMOGLOBIN 33.8 pg (27.5-34.5); MEAN CORPUSCULAR HGB CONC 35.1 g/dL (33.2-36.2); MEAN CORPUSCULAR VOLUME 96.3 fL (81-97); MEAN PLATELET VOLUME 7.5 fL (7.4-10.4); MONOCYTES # (AUTO) 0.54 x10^3/uL (0.2-0.8); MONOCYTES % (AUTO) 8 % (2-9); NEUTROPHILS # (AUTO) 3.83 x10^3/uL (1.8-6.8); NEUTROPHILS % (AUTO) 57 % (42-75); PLATELET COUNT 225 x10^3/uL (130-400); RED BLOOD COUNT 4.38 x10^6/uL (4.38-5.82); RED CELL DISTRIBUTION WIDTH 13.5 % (9.4-14.8)
[2018-01-09 22:28] LABS: ALBUMIN 3.6 g/dL (3.4-5.0); ANION GAP 8 mmol/L (5-15); CHLORIDE 107 mmol/L (98-107); SALICYLATE LEVEL 3.1 mg/dL (2.8-20.0)
[2018-01-09 22:31] LABS: ACETAMINOPHEN < 2 mcg/mL (10-30); ALANINE AMINOTRANSFERASE 48 U/L (12-78); ALKALINE PHOSPHATASE 54 U/L (45-117); BILIRUBIN,TOTAL 0.9 mg/dL (0.2-1.0); CREATININE 1.04 mg/dL (0.7-1.3); TOTAL PROTEIN 6.5 g/dL (6.4-8.2)
[2018-01-10] MEDS ORDERED: POTASSIUM CHLORIDE 20 MEQ TAB.ER.PRT PO ONE
[2018-01-10] MEDS ORDERED: ACETAMINOPHEN 325 MG TABLET PO PRN
[2018-01-10] MEDS ORDERED: LABETALOL 5MG/ML, 20ML IVPush PRN
[2018-01-10] MEDS ORDERED: LORazepam 2 MG/ML, 1ML IV PRN
[2018-01-10 01:28] VITALS: BP 113/75
[2018-01-10 02:00] VITALS: BP 114/74
[2018-01-10 06:14] LABS: ANION GAP 8 mmol/L (5-15); CALCIUM 8.5 mg/dL (8.5-10.1); CHLORIDE 107 mmol/L (98-107)
[2018-01-10 06:15] LABS: CREATININE 0.86 mg/dL (0.7-1.3)
[2018-01-10] MEDS: LORazepam 1MG TABLET PO PRN ×2 (07:47→11:05)
[2018-01-10 08:00] VITALS: BP 127/75
[2018-01-10] MEDS ORDERED: FAMOTIDINE 20 MG/2 ML IVPush SCH (09:00)
[2018-01-10] MEDS ORDERED: POTASSIUM CHLORIDE 20 MEQ, MAGNESIUM SULFATE 1 GM, FOLIC ACID 1 MG, THIAMINE 200 MG, MV... IV SCH (11:30)
[2018-01-10] MEDS ORDERED: D5%-0.9% NACL 1,000 ML IV SCH (11:30)
[2018-01-10] MEDS ORDERED: KETOROLAC 30 MG/1 ML IVPush PRN (11:30)
[2018-01-10] MEDS ORDERED: NICOTINE 14MG/24 HR PATCH.TD24 TD SCH ×2 (11:30)
[2018-01-10 13:01] VITALS: BP 123/83
== END 2018-01-10 18:19 | disposition home or self-care (01) ==
LOC: ED 17:40 → EDIP 22:57 → 4WST 01-10 00:51
PROVIDERS: ADMIT Internal Medicine; ATTEND Hospitalist
DX: R45.851 Suicidal ideations (principal); F10.229 Alcohol dependence with intoxication, unspecified; E87.6 Hypokalemia; F11.20 Opioid dependence, uncomplicated; F12.90 Cannabis use, unspecified, uncomplicated; I10 Essential (primary) hypertension; G89.4 Chronic pain syndrome; F41.1 Generalized anxiety disorder; F17.210 Nicotine dependence, cigarettes, uncomplicated
CPT/HCPCS: 36415; 80048; 80053; 80307; 80329; 85025; 96365; 96366; 96375; 99285; G0378; J3411; J3475; J3480; J7042; S0028; G0480